=== PATIENT | male | born 1985 | race Caucasian/White ===

== ENCOUNTER 2018-01-18 08:34 | Emergency (ER) | payer MEDICAID ==
[2018-01-18 08:48] VITALS: BP 136/97
[2018-01-18] MEDS ORDERED: NAPROXEN 250 MG TABLET PO STA (08:57)
--- NOTE | 2018-01-18 10:29 | XRAY Report ---
Reason: foot injury Procedure Date: 01/18/2018 Accession Number: [id number] / [id number] Procedure: XR - Foot 3 View RT CPT Code: FULL RESULT: EXAM: RIGHT FOOT RADIOGRAPHY EXAM DATE: 01/18/2018 09:11 AM. CLINICAL HISTORY: Foot injury. COMPARISON: None. TECHNIQUE: 3 views. FINDINGS: Bones: No evidence of a minimally displaced fracture of the distal third metatarsal. No definite intra-articular involvement. Joints: Normal. No subluxations. 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 Soft Tissues: Dorsal forefoot soft tissue swelling. IMPRESSION: Evidence of a minimally displaced distal third metatarsal fracture. RADIA
--- NOTE | 2018-01-18 10:34 | ED Physician Documentation ---
PD HPI LOWER EXT INJURY - Stated complaint Stated Complaint: R LEG INJ - Chief complaint Chief Complaint: Ext Problem - History obtained from History obtained from: Patient - History of Present Illness PD HPI LOW EXT INJURY LOCATION: Right, Foot Type of injury: Blunt / blow Where injury occurred: Home Timing - onset: Yesterday Timing - details: Abrupt onset Severity Comments: moderate Improved by: Rest, Ice Worsened by: Moving Associated symptoms: Swelling. No: Numbness, Tingling Contributing factors: No: Anticoagulated Recently seen: Not recently seen Review of Systems Constitutional: denies: Fever Eyes: denies: Discharge Nose: denies: Foreign Body Throat: denies: Sore throat Cardiac: denies: Chest pain / pressure GI: denies: Abdominal Pain Musculoskeletal: reports: Extremity pain. denies: Neck pain Neurologic: denies: Generalized weakness PD PAST MEDICAL HISTORY - Past Surgical History Past Surgical History: No - Present Medications Home Medications: Ambulatory Orders Medication Instructions Recorded Confirmed Hydrocodone/Acetaminophen [[place] 1 each PO Q6HR PRN #10 tablet 01/18/18 5-325 Tablet] Lisinopril 5 mg PO DAILY 01/18/18 01/18/18 Naproxen 500 mg PO BID PRN #60 tablet 01/18/18 - Allergies Allergies/Adverse Reactions: Allergies Allergy/AdvReac Type Severity Reaction Status Date / Time No Known Drug Allergies Allergy Verified 06/28/12 20:06 - Social History Does the pt smoke?: No Smoking Status: Never smoker Does the pt drink ETOH?: No Does the pt have substance abuse?: No - Immunizations Immunizations are current?: Yes PD ED PE NORMAL - General General: Alert and oriented X 3, No acute distress - HEENT HEENT: Atraumatic, PERRL, EOMI, Ears normal - Derm Derm: Normal color, Warm and dry - Neuro Neuro: Alert and oriented X 3, Normal speech - Psych Psych: Normal affect PD ED PE EXPANDED - Extremities Extremities: Right foot, Motor intact, Sensory intact, Vascular intact Feet visual: 1 - swelling, tenderness (The patient has tenderness to palpation, there is swelling and ecchymosis. There is a normal dorsalis pedis pulse and normal cap refill. The patient has normal range of motion. Motor sensory and vascular are intact. There is no tenderness in the ankle or proximal fibular head) Results - Vitals Vitals: Vital Signs - 24 hr 01/18/18 08:46 Temperature 37.1 C Heart Rate 95 Respiratory 18 Rate Blood Pressure 136/97 H O2 Saturation 99 Oxygen O2 Source Room air - Rads (name of study) xr foot Radiology: Final report received PD MEDICAL DECISION MAKING - ED course ED course: The patient will be placed in a walking boot and appears appropriate for discharge and ongoing outpatient management. I discussed with him the findings on his x-ray and the need for follow-up with orthopedics for definitive management. The patient understands and agrees. I discussed warning signs and recommended returning to the emergency department immediately for any worsening or any concerns. Departure - Departure Disposition: 01 Home, Self Care Clinical Impression: Metatarsal bone fracture Qualifiers: Encounter type: initial encounter Metatarsal bone: third Fracture type: closed Fracture alignment: nondisplaced Laterality: right Qualified Code(s): S92.334A - Nondisplaced fracture of third metatarsal bone, right foot, initial encounter for closed fracture Condition: Good Instructions: ED Fx Foot Follow-Up: [facility] [Provider Group] - Within 3 Days (Call today to schedule a follow up visit) Prescriptions: Hydrocodone/Acetaminophen [[place] 5-325 Tablet] 1 each PO Q6HR PRN #10 tablet PRN Reason: Pain Naproxen 500 mg PO BID PRN #60 tablet PRN Reason: Pain Comments: Please return to the emergency department for worsening symptoms or any concerns.
== END 2018-01-18 10:52 | disposition home or self-care (01) ==
LOC: ED 08:34
DX: S92.331A Displaced fracture of third metatarsal bone, right foot, initial encounter for closed fracture (principal); W20.8XXA Other cause of strike by thrown, projected or falling object, initial encounter; Y93.89 Activity, other specified; Y92.009 Unspecified place in unspecified non-institutional (private) residence as the place of occurrence of the external cause
CPT/HCPCS: 73630; 99283; A9270

== ENCOUNTER 2019-03-10 08:38 | Emergency (ER) | payer MEDICAID ==
[2019-03-10 08:47] VITALS: BP 146/85
--- NOTE | 2019-03-10 08:47 | ED Physician Documentation ---
PD HPI BACK PAIN - Stated complaint Stated Complaint: LOWER BACK PX - Chief complaint Chief Complaint: Back Pain - History obtained from History obtained from: Patient - History of Present Illness Timing - onset: How many hours ago (2), Today Timing - duration: Hours (2) Timing - details: Abrupt onset (He had just brought the garbage out and twisted carrying the garbage can and felt an onset of pain in the lower back. There is no fall or direct impact. He was feeling okay yesterday.), Still present Location: Lower, Left Quality: Pain, Spasm, Aching Associated symptoms: No: Fever, Weakness, Numbness, Incontinent of urine Similar symptoms before: Diagnosis (Has had muscle strain in the past. No radicular nor disc type symptoms.) Review of Systems Constitutional: denies: Fever, Chills Neurologic: denies: Focal weakness, Numbness PD PAST MEDICAL HISTORY - Past Medical History Cardiovascular: None Respiratory: None Endocrine/Autoimmune: None - Past Surgical History Past Surgical History: No - Present Medications Home Medications: Ambulatory Orders Medication Instructions Recorded Confirmed Hydrocodone/Acetaminophen [[place] 1 each PO Q6HR PRN #10 tablet 01/18/18 5-325 Tablet] Naproxen 500 mg PO BID PRN #60 tablet 01/18/18 lisinopriL [Lisinopril] 5 mg PO DAILY 01/18/18 01/18/18 Hydrocodone/Acetaminophen [[place] 1 each PO Q6H PRN #20 tablet 03/10/19 5-325 Tablet] Ibuprofen [Motrin] 600 mg PO TID PRN #25 tab 03/10/19 Tizanidine HCl 4 mg PO TID PRN #25 capsule 03/10/19 - Allergies Allergies/Adverse Reactions: Allergies Allergy/AdvReac Type Severity Reaction Status Date / Time No Known Drug Allergies Allergy Verified 03/10/19 08:43 - Social History Does the pt smoke?: No Smoking Status: Never smoker Does the pt drink ETOH?: No Does the pt have substance abuse?: No - Immunizations Immunizations are current?: Yes PD ED PE NORMAL - Vitals Vital signs reviewed: Yes - General General: Alert and oriented X 3, Well developed/nourished - Abdomen Abdomen: Soft, Non tender - Back Back: No spinal TTP (tender in muscles to sides of lumbar area. ) - Derm Derm: Normal color, Warm and dry - Extremities Extremities: No tenderness to palpate, Normal ROM s pain, No edema, No calf tenderness / cord - Neuro Neuro: No motor deficit, No sensory deficit, Other (normal knee reflexes) Results - Vitals Vitals: Vital Signs - 24 hr 03/10/19 08:44 Temperature 36.7 C Heart Rate 74 Respiratory 17 Rate Blood Pressure 146/85 H O2 Saturation 99 Oxygen O2 Source Room air PD MEDICAL DECISION MAKING - ED course Complexity details: considered differential (no red flags for this mechanical onset low back pain. ), d/w patient Departure - Departure Disposition: Home, Self Care Clinical Impression: Low back strain Qualifiers: Encounter type: initial encounter Qualified Code(s): S39.012A - Strain of muscle, fascia and tendon of lower back, initial encounter Condition: Stable Record reviewed to determine appropriate education?: Yes Instructions: ED Sprain Strain Lumbar Prescriptions: Hydrocodone/Acetaminophen [[place] 5-325 Tablet] 1 each PO Q6H PRN #20 tablet PRN Reason: Pain Ibuprofen [Motrin] 600 mg PO TID PRN #25 tab PRN Reason: Pain Tizanidine HCl 4 mg PO TID PRN #25 capsule PRN Reason: Spasms Comments: Heat and gentle stretching for the low back. Otherwise avoid lifting bending and prolonged standing today in tomorrow as needed. Physical treatments such as massage chiropractic heat and stretching are good. Anti-inflammatory of ibuprofen 3 times a day. Add tizanidine muscle relaxant to help with stiffness. To those add Tylenol or hydrocodone if needed for pains. I would anticipate improvement over the next few days with resolution over about a week. Forms: Activity restrictions Discharge Date/Time: 03/10/19 09:07
[2019-03-10] MEDS ORDERED: HYDROcod/ACETAM 5/325 MG TABLET PO STA (09:00)
[2019-03-10] MEDS ORDERED: IBUPROFEN 600 MG TABLET PO STA (09:00)
[2019-03-10] MEDS ORDERED: methocarbamoL 500 MG TABLET PO STA (09:00)
== END 2019-03-10 09:07 | disposition home or self-care (01) ==
LOC: ED 08:38
DX: S39.012A Strain of muscle, fascia and tendon of lower back, initial encounter (principal); X50.1XXA Overexertion from prolonged static or awkward postures, initial encounter; Y93.89 Activity, other specified
CPT/HCPCS: 99283; 99284; A9270

== ENCOUNTER 2020-06-12 08:28 | Emergency (ER) | payer MEDICAID ==
--- OUTSIDE RECORDS SUMMARY | 2020-06-12 09:10 | EXTERNAL MEDICAL SUMMARY RPT | Continuity of Care Document ---
:1985 Demographics Phone Unavailable Preferred Language Unknown Marital Status Unknown Mormon Affiliation Unknown Race Unknown Ethnic Group Unknown Author Organization [facility] Address [address] [phone] Phone Social History date description facility [phone]
--- NOTE | 2020-06-12 09:14 | ED Physician Documentation ---
PD HPI BACK PAIN - Stated complaint Stated Complaint: BACK PX - Chief complaint Chief Complaint: Back Pain - History obtained from History obtained from: Patient - History of Present Illness Timing - onset: How many days ago (3) Timing - duration: Days (3) Timing - details: Abrupt onset, Still present Location: Lower, Left Quality: Pain, Spasm, Sharp Associated symptoms: No: Fever, Weakness, Numbness, Incontinent of urine Improves with: No: Rest Worsened by: Movement, Twisting, Palpation Contributing factors: Trauma (he says he tripped and fell into door jamb, striking the lower back, with pain that that has increased at times.) Similar symptoms before: Diagnosis (prior episodic back pain, not chronic.) Recently seen: Not recently seen Review of Systems Constitutional: denies: Fever, Chills Nose: denies: Rhinorrhea / runny nose, Congestion Throat: denies: Sore throat Respiratory: denies: Cough GI: denies: Abdominal Pain Skin: denies: Abrasion (s), Laceration (s) Neurologic: denies: Focal weakness, Numbness PD PAST MEDICAL HISTORY - Past Medical History Past Medical History: Yes Cardiovascular: None Respiratory: None Neuro: None Endocrine/Autoimmune: None GI: None : None HEENT: None Psych: None Musculoskeletal: Chronic back pain Derm: None - Past Surgical History Past Surgical History: No - Present Medications Home Medications: Ambulatory Orders Medication Instructions Recorded Confirmed HYDROcod/ACETAM 5/325 [[place] 5/325] 1 ea PO Q6H PRN #18 tablet 06/12/20 Ibuprofen [Motrin] 600 mg PO TID PRN #25 tab 06/12/20 Ibuprofen [Motrin] 800 mg PO TID PRN 06/12/20 06/12/20 tiZANidine [Zanaflex] 4 mg PO Q8H PRN #25 tablet 06/12/20 - Allergies Allergies/Adverse Reactions: Allergies Allergy/AdvReac Type Severity Reaction Status Date / Time No Known Drug Allergies Allergy Verified 06/12/20 08:53 - Social History Does the pt smoke?: No Smoking Status: Never smoker Does the pt drink ETOH?: No Does the pt have substance abuse?: No - Immunizations Immunizations are current?: Yes PD ED PE NORMAL - Vitals Vital signs reviewed: Yes - General General: Alert and oriented X 3, No acute distress, Well developed/nourished - Abdomen Abdomen: Soft, Non tender - Back Back: Other (tender mid and left lumbar area without abrasion, bruising, nor deformity. ) - Derm Derm: Normal color, Warm and dry, No rash - Neuro Neuro: Alert and oriented X 3, No motor deficit, No sensory deficit, Normal speech Results - Vitals Vitals: Vital Signs - 24 hr 06/12/20 06/12/20 08:46 09:55 Temperature 36.6 C Heart Rate 88 64 Respiratory 16 18 Rate Blood Pressure 145/82 H 140/70 H O2 Saturation 100 100 Oxygen O2 Source Room air - Rads (name of study) lumbar xray Radiology: Prelim report reviewed (no fractures nor misalignment), See rad report PD MEDICAL DECISION MAKING - ED course Complexity details: reviewed old records, reviewed results, considered differential, d/w patient Departure - Departure Disposition: 01 Home, Self Care Clinical Impression: Back contusion Qualifiers: Encounter type: initial encounter Laterality: unspecified laterality Qualified Code(s): S20.229A - Contusion of unspecified back wall of thorax, initial encounter Low back strain Qualifiers: Encounter type: initial encounter Qualified Code(s): S39.012A - Strain of muscle, fascia and tendon of lower back, initial encounter Condition: Stable Record reviewed to determine appropriate education?: Yes Instructions: ED Sprain Strain Lumbar Prescriptions: Ibuprofen [Motrin] 600 mg PO TID PRN #25 tab PRN Reason: Pain HYDROcod/ACETAM 5/325 [[place] 5/325] 1 ea PO Q6H PRN #18 tablet PRN Reason: Pain tiZANidine [Zanaflex] 4 mg PO Q8H PRN #25 tablet PRN Reason: Spasms Comments: Your x-ray appears normal with good alignment and no signs of acute bony abnormality. Presume some strain and bruising of the muscles and ligaments. Use some anti-inflammatory such as ibuprofen 3 times a day with food. To that add tizanidine muscle relaxant heat and stretching. To that add Tylenol every 4-6 hours or hydrocodone if needed for worse pain. I would anticipate improvement over several days and resolved within a week or so. Progress activity as tolerated and able. 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 You will have to see how quickly you improve/progress. Forms: Activity restrictions Discharge Date/Time: 06/12/20 10:15
[2020-06-12] MEDS ORDERED: methocarbamoL 500 MG TABLET PO STA (09:28)
[2020-06-12] MEDS ORDERED: ACETAMINOPHEN 325 MG TABLET PO STA (09:28)
[2020-06-12] MEDS ORDERED: KETOROLAC 30 MG/ML VIAL IM STA (09:28)
[2020-06-12 09:56] VITALS: BP 140/70
--- NOTE | 2020-06-12 10:12 | XRAY Report ---
PROCEDURE: Lumbar Spine 2 View INDICATIONS: fall with onset low back pain TECHNIQUE: 2 views of the lumbar spine were acquired. COMPARISON: None. FINDINGS: Bones: 5 [id number] vertebrae are present. There is normal bony alignment. Mild chronic-appea ring L3 compression fracture. Mild multilevel endplate osteophyte formation within the mid/upper lumb ar spine. No acute appearing vertebral body compression fractures. No suspicious bony lesions. Soft tissues: Overlying bowel gas pattern is normal. No suspicious soft tissue calcifications. IMPRESSION: No acute fracture. No osseous lesion. If symptoms and/or clinical suspicion for patholog y continue, further assessment with repeat plain films, or advanced imaging (e.g., CT, MRI, or bone s can) is recommended for further assessment. Reviewed by: Pippa Ascencio MD on 06/12/2020 10:11 AM PDT Approved by: Pippa Ascencio MD on 06/12/2020 10:11 AM PDT Station ID: [id number]
== END 2020-06-12 10:15 | disposition home or self-care (01) ==
LOC: ED 08:28
DX: S20.229A Contusion of unspecified back wall of thorax, initial encounter (principal); W01.198A Fall on same level from slipping, tripping and stumbling with subsequent striking against other object, initial encounter
CPT/HCPCS: 72100; 96372; 99283; 99284; A9270

== ENCOUNTER 2020-08-23 16:05 | Emergency (ER) | payer MEDICAID ==
[2020-08-23 16:18] VITALS: BP 151/91
[2020-08-23] MEDS ORDERED: LIDOCAINE 1% 2 ML VIAL MC ONE ×2 (16:32→16:35)
[2020-08-23] MEDS ORDERED: cefTRIAXone 250 MG VIAL IM STA (16:32)
--- NOTE | 2020-08-23 16:34 | ED Physician Documentation ---
PD HPI SKIN - Stated complaint Stated Complaint: MALE - Chief complaint Chief Complaint: Wound - History obtained from History obtained from: Patient (3 days of severe dysuria at the tip with redness of the tip and he feels like his urethra is closing) Review of Systems Constitutional: denies: Fever, Chills Ears: reports: Reviewed and negative Nose: reports: Reviewed and negative Throat: reports: Reviewed and negative PD PAST MEDICAL HISTORY - Past Medical History Cardiovascular: None Respiratory: None Neuro: None Endocrine/Autoimmune: None GI: None : None HEENT: None Psych: None Musculoskeletal: Chronic back pain Derm: None - Past Surgical History Past Surgical History: No - Present Medications Home Medications: Ambulatory Orders Medication Instructions Recorded Confirmed HYDROcod/ACETAM 5/325 [[place] 5/325] 1 ea PO Q6H PRN #18 tablet 06/12/20 Ibuprofen [Motrin] 600 mg PO TID PRN #25 tab 06/12/20 Ibuprofen [Motrin] 800 mg PO TID PRN 06/12/20 06/12/20 tiZANidine [Zanaflex] 4 mg PO Q8H PRN #25 tablet 06/12/20 Doxycycline Hyclate 100 mg PO BID #14 08/23/20 - Allergies Allergies/Adverse Reactions: Allergies Allergy/AdvReac Type Severity Reaction Status Date / Time No Known Drug Allergies Allergy Verified 06/12/20 08:53 - Social History Does the pt smoke?: No Smoking Status: Never smoker Does the pt drink ETOH?: No Does the pt have substance abuse?: No - Immunizations Immunizations are current?: Yes PD ED PE NORMAL - Vitals Vital signs reviewed: Yes - General General: Alert and oriented X 3, No acute distress - Male Male : Other (There is a visible bit of purulence at the tip of the meatus with mild glans swelling.) - Neuro Neuro: Alert and oriented X 3, Normal speech Results - Vitals Vitals: Vital Signs - 24 hr 08/23/20 16:14 Temperature 37.5 C Heart Rate 90 Respiratory 16 Rate Blood Pressure 151/91 H O2 Saturation 99 Oxygen O2 Source Room air PD MEDICAL DECISION MAKING - ED course ED course: 34-year-old gentleman presents with urethritis. He denied any significant risk factors for STDs but it seems consistent and he was given 500 mg of Rocephin IM and a weeks worth of doxycycline. Departure - Departure Disposition: Home, Self Care Clinical Impression: Urethritis Condition: Good Record reviewed to determine appropriate education?: Yes Instructions: ED Urethritis Infec Vs Inflam Male Prescriptions: Doxycycline Hyclate 100 mg PO BID #14 Comments: Stay out of the sun while on the antibiotics, they will make you sun sensitive. Return for new or worsening symptoms. We are running STD tests, if positive, we will call you. The results should be done in 48 to 72 hours. We will call with a positive result, the fastest way to get a negative result for confirmation though is to go to the hospital website at [email or web address], click on the my [facility] tab and sign up for the patient portal.
[2020-08-23] MEDS ORDERED: cefTRIAXone 500 MG VIAL IM STA (16:35)
[2020-08-23 22:42] LABS: CHLAMYDIA TRACHOMATIS DNA NEGATIVE (NEGATIVE); NEISSERIA GONORRHOEAE DNA NEGATIVE (NEGATIVE)
== END 2020-08-23 17:17 | disposition home or self-care (01) ==
LOC: ED 16:05
DX: N34.2 Other urethritis (principal)
CPT/HCPCS: 87491; 87591; 87661; 96372; 99283

== ENCOUNTER 2022-01-13 10:01 | Emergency (ER) | payer MEDICAID ==
--- NOTE | 2022-01-13 10:41 | XRAY Report ---
PROCEDURE: Ankle 3 View LT INDICATIONS: ankle injury/pain TECHNIQUE: 3 views of the ankle were acquired. COMPARISON: None FINDINGS: Bones: No fractures or dislocations. Ankle mortise is normally aligned. No suspicious bony lesions . Soft tissues: Some soft tissue swelling is present. No suspicious calcifications. IMPRESSION: No acute radiographic abnormality. 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 Reviewed by: Foreign Koenig MD on 01/13/2022 10:40 AM [facility] Approved by: Foreign Koenig MD on 01/13/2022 10:40 AM [facility] Station ID: [id number]
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
[2022-01-13] MEDS: IBUPROFEN 800 MG TABLET PO STA (11:05)
[2022-01-13 12:05] VITALS: BP 143/114
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
--- NOTE | 2022-01-13 12:39 | XRAY Report ---
PROCEDURE: Tib/Fib LT INDICATIONS: accident/pain TECHNIQUE: 2 views of the tibia and fibula were acquired. COMPARISON: Left ankle radiographs also performed today. FINDINGS: Bones: No fractures or dislocations. No suspicious bony lesions. Soft tissues: No suspicious soft tissue calcifications or masses. IMPRESSION: No acute osseous abnormality. Reviewed by: Filipe Power MD on 01/13/2022 12:38 PM PST Approved by: Filipe Power MD on 01/13/2022 12:38 PM PST Station ID: [id number]
== END 2022-01-13 12:06 | disposition home or self-care (01) ==
LOC: ED 10:01
DX: S70.02XA Contusion of left hip, initial encounter (principal); S93.402A Sprain of unspecified ligament of left ankle, initial encounter; V19.88XA Pedal cyclist (driver) (passenger) injured in other specified transport accidents, initial encounter; Y93.55 Activity, bike riding; Y92.830 Public park as the place of occurrence of the external cause
CPT/HCPCS: 73502; 73590; 73610; 99282; 99283; A9270